=== PATIENT | male | born 1970 | race American Indian/Alaskan Native ===

== ENCOUNTER 2019-09-09 20:17 | Emergency (ER) | payer OTHER ==
[2019-09-09] MEDS ORDERED: ASPIRIN 325 MG TAB PO ONE (20:22)
--- NOTE | 2019-09-09 21:24 | Event Note ---
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 Further treatment and workup at subsequent clinical providers discretion. Patient/guardian urged not to elope from the ED as their condition may be serious if not clinically assessed and managed. Initial orders include: labs cxr
[2019-09-09 21:27] LABS: Basophils % (Auto) 0.5 % (0.0-1.8); Eosinophils # (Auto) 0.1 K/mm3 (0.0-0.4); Eosinophils % (Auto) 0.9 % (0.0-4.3); Hematocrit 46.4 % (35.5-45.6); Hemoglobin 15.5 gm/dl (11.8-15.2); Lymphocytes # (Auto) 1.8 K/mm3 (1.2-5.4); Lymphocytes % (Auto) 30.7 % (13.4-35.0); Mean Corpuscular HGB Conc 33 % (32-34); Mean Corpuscular Volume 90 fl (84-94); Monocytes # (Auto) 0.7 K/mm3 (0.0-0.8); Monocytes % (Auto) 11.9 % (0.0-7.3); Platelet Count 196 K/mm3 (140-440); Red Blood Count 5.18 M/mm3 (3.65-5.03); Red Cell Distribution Width 13.7 % (13.2-15.2)
[2019-09-09 21:45] LABS: BUN/Creatinine Ratio 15; Blood Urea Nitrogen 17 mg/dL (9-20); Calcium 9.9 mg/dL (8.4-10.2); Hemolysis Index 21
--- NOTE | 2019-09-09 22:42 | XRay Report ---
CHEST 1 VIEW INDICATION / CLINICAL INFORMATION: MAIN: Chest Pain; Pt c/o sub-sternal chest pain since Sunday.. COMPARISON: None available. FINDINGS: SUPPORT DEVICES: None. HEART / MEDIASTINUM: No significant abnormality. LUNGS / PLEURA: No significant pulmonary or pleural abnormality. No pneumothorax. ADDITIONAL FINDINGS: No significant additional findings. IMPRESSION: 1. No acute findings. Signer Name: Jossie Alvarez MD Signed: 09/09/2019 10:37 PM Workstation Name: [id number]
--- NOTE | 2019-09-10 00:27 | Emergency Department Report ---
ED Chest Pain HPI - General Chief Complaint: Chest Pain Stated Complaint: CHEST PAIN Time Seen by Provider: 09/10/19 00:23 Source: patient Mode of arrival: Ambulatory Limitations: No Limitations - History of Present Illness Initial Comments: Mr. Gonzales is a 49-year-old male without significant past medical history who presents with chest pain cough hemoptysis. Pain began 4 days ago. Feels a soreness in his chest. Worse with exertion at work. He has sputum with mild hemoptysis. No history of tobacco abuse. PCP Dr. Raymond Calvo MD Complaint: chest pain -: Gradual, days(s) (4) Onset: during rest, during exertion Pain Location: substernal Pain Radiation: none Severity: mild Quality: other ("Soreness") Worsens With: movement - Related Data Previous Rx's Medication Instructions Recorded Last Taken Type DOXYCYCLINE Hyclate [Vibramycin 100 mg PO Q12HR 7 Days #14 capsule 09/10/19 Unknown Rx CAP] Allergies Allergy/AdvReac Type Severity Reaction Status Date / Time No Known Allergies Allergy Unverified 09/09/19 20:20 Heart Score - HEART Score History: Slightly suspicious EKG: Normal Age: 45-65 Risk factors: No known risk factors Troponin: < normal limit HEART Score: 1 ED Review of Systems ROS: Stated complaint: CHEST PAIN Other details as noted in HPI Comment: All other systems reviewed and negative Constitutional: denies: fever, malaise Respiratory: cough Cardiovascular: chest pain ED Past Medical Hx - Past Medical History Previous Medical History?: No - Surgical History Past Surgical History?: No - Social History Smoking Status: Never Smoker - Medications Home Medications: Home Medications Medication Instructions Recorded Confirmed Last Taken Type DOXYCYCLINE Hyclate [Vibramycin 100 mg PO Q12HR 7 Days #14 capsule 09/10/19 Unknown Rx CAP] ED Physical Exam - General Limitations: No Limitations General appearance: alert, in no apparent distress - Head Head exam: Present: atraumatic, normocephalic - Eye Eye exam: Present: normal appearance - ENT ENT exam: Present: mucous membranes moist - Neck Neck exam: Present: normal inspection, full ROM - Respiratory Respiratory exam: Present: normal lung sounds bilaterally. Absent: respiratory distress, wheezes, rales, rhonchi - Cardiovascular Cardiovascular Exam: Present: regular rate, normal rhythm, normal heart sounds. Absent: systolic murmur, diastolic murmur, rubs, gallop - GI/Abdominal GI/Abdominal exam: Present: soft, normal bowel sounds. Absent: distended, tenderness, guarding, rebound - Rectal Rectal exam: Present: deferred - Extremities Exam Extremities exam: Present: normal inspection - Neurological Exam Neurological exam: Present: alert, oriented X3 - Psychiatric Psychiatric exam: Present: normal affect, normal mood - Skin Skin exam: Present: warm, dry, intact, normal color. Absent: rash ED Course Vital Signs 09/09/19 21:23 Temperature 97.8 F Pulse Rate 81 Respiratory 18 Rate Blood Pressure 127/87 O2 Sat by Pulse 98 Oximetry ED Medical Decision Making - Lab Data Result diagrams: 09/09/19 21:11 09/09/19 21:11 Laboratory Results - last 24 hr 09/09/19 09/09/19 21:11 21:11 WBC 5.9 RBC 5.18 H Hgb 15.5 H Hct 46.4 H MCV 90 MCH 30 MCHC 33 RDW 13.7 Plt Count 196 Lymph % (Auto) 30.7 [place] % (Auto) 11.9 H Eos % (Auto) 0.9 Baso % (Auto) 0.5 Lymph # 1.8 [place] # 0.7 Eos # 0.1 Baso # 0.0 Seg Neutrophils % 56.0 Seg Neutrophils # 3.3 Sodium 138 Potassium 4.0 Chloride 98.9 Carbon Dioxide 26 Anion Gap 17 BUN 17 Creatinine 1.1 Estimated GFR > 60 BUN/Creatinine Ratio 15 Glucose 95 Calcium 9.9 Troponin T < 0.010 - EKG Data EKG shows normal: sinus rhythm, axis, intervals, QRS complexes, ST-T waves Rate: normal - EKG Data Interpretation: normal EKG - Radiology Data Radiology results: report reviewed Chest radiograph: No acute findings - Medical Decision Making Mr. Gonzales presents with musculoskeletal chest pain acute bronchitis. Due to severity of symptoms antibiotics provided. Prescription for doxycycline. Atypical for ACS. No cardiovascular risk factors. I urged him to follow-up with his PCP Dr. Raymond Calvo Critical care attestation.: If time is entered above; I have spent that time in minutes in the direct care of this critically ill patient, excluding procedure time. ED Disposition Clinical Impression: Acute bronchitis, Chest wall pain Disposition: - TO HOME OR SELFCARE Is pt being admited?: No Does the pt Need Aspirin: No Condition: Stable Instructions: Acute Bronchitis (ED), Chest Pain (ED) Prescriptions: DOXYCYCLINE Hyclate [Vibramycin CAP] 100 mg PO Q12HR 7 Days #14 capsule Referrals: RAYMOND CALVO MD [Primary Care Provider] - 3-5 Days Forms: Work/School Release Form(ED)
[2019-09-10 00:52] VITALS: BP 126/91
== END 2019-09-10 00:45 | disposition home or self-care (01) ==
LOC: ED 20:17
DX: J20.9 Acute bronchitis, unspecified (principal); R07.89 Other chest pain; Z79.899 Other long term (current) drug therapy
CPT/HCPCS: 36415; 71045; 80048; 84484; 85025; 93005; 93010

== ENCOUNTER 2019-09-24 07:52 | Emergency (ER) | payer OTHER ==
[2019-09-24 08:04] VITALS: BP 139/86
[2019-09-24 08:37] LABS: Basophils % (Auto) 0.6 % (0.0-1.8); Eosinophils % (Auto) 0.1 % (0.0-4.3); Hematocrit 47.1 % (35.5-45.6); Hemoglobin 15.8 gm/dl (11.8-15.2); Lymphocytes # (Auto) 0.9 K/mm3 (1.2-5.4); Lymphocytes % (Auto) 24.1 % (13.4-35.0); Mean Corpuscular HGB Conc 34 % (32-34); Mean Corpuscular Volume 90 fl (84-94); Monocytes # (Auto) 0.3 K/mm3 (0.0-0.8); Monocytes % (Auto) 8.2 % (0.0-7.3); Platelet Count 177 K/mm3 (140-440); Red Blood Count 5.25 M/mm3 (3.65-5.03); Red Cell Distribution Width 13.5 % (13.2-15.2)
[2019-09-24 08:58] LABS: BUN/Creatinine Ratio 11; Blood Urea Nitrogen 8 mg/dL (9-20); Calcium 9.5 mg/dL (8.4-10.2); Hemolysis Index 10
--- NOTE | 2019-09-24 09:29 | XRay Report ---
CHEST 1 VIEW 09/24/2019 8:20 AM INDICATION / CLINICAL INFORMATION: Chest Pain. COMPARISON: One view of the chest from 09/09/2019. FINDINGS: SUPPORT DEVICES: None. HEART / MEDIASTINUM: No significant abnormality. LUNGS / PLEURA: No significant pulmonary or pleural abnormality. No pneumothorax. ADDITIONAL FINDINGS: No significant additional findings. IMPRESSION: 1. No acute abnormality of the chest. Signer Name: Joe Gallegos MD Signed: 09/24/2019 9:25 AM Workstation Name: [email or web address]
[2019-09-24] MEDS ORDERED: ALUM-MAG HYDROXIDE-SIMETHICONE 200-200-20MG/5ML ORAL LIQD 30 ML PO ONE (09:32)
--- NOTE | 2019-09-24 09:43 | Emergency Department Report ---
ED General Adult HPI - General Chief complaint: Chest Pain Stated complaint: BURNING IN CHEST Time Seen by Provider: 09/24/19 09:21 Source: patient Mode of arrival: Ambulatory Limitations: No Limitations - History of Present Illness Initial comments: 49-year-old -[place] male presents the emergency room complaining of burning sensation in his throat and chest that is nonradiating x4 weeks. Patient was seen here on 09/10/2019 for bronchitis. Patient states the discomfort is worse after he eats. Patient states that he has a primary care doctor Dr. Kashif parker. Patient has taken nothing for his discomfort. Patient has no past medical history no surgical history no known drug allergies and does not take meds on a daily basis Onset/Timin -: week(s) Location: chest, abdomen (Epigastric) Radiation: non-radiation Severity scale (0 -10): 5 Quality: burning Consistency: intermittent Improves with: none Worsens with: eating Associated Symptoms: denies other symptoms Treatments Prior to Arrival: none - Related Data Previous Rx's Medication Instructions Recorded Last Taken Type DOXYCYCLINE Hyclate [Vibramycin 100 mg PO Q12HR 7 Days #14 capsule 09/10/19 Unknown Rx CAP] Famotidine [Pepcid] 20 mg PO BID 30 Days #60 tablet 09/24/19 Unknown Rx Allergies Allergy/AdvReac Type Severity Reaction Status Date / Time No Known Allergies Allergy Unverified 09/09/19 20:20 ED Review of Systems ROS: Stated complaint: BURNING IN CHEST Other details as noted in HPI Comment: All other systems reviewed and negative ED Past Medical Hx - Past Medical History Previous Medical History?: No - Surgical History Past Surgical History?: No - Social History Smoking Status: Never Smoker - Medications Home Medications: Home Medications Medication Instructions Recorded Confirmed Last Taken Type DOXYCYCLINE Hyclate [Vibramycin 100 mg PO Q12HR 7 Days #14 capsule 09/10/19 Unknown Rx CAP] Famotidine [Pepcid] 20 mg PO BID 30 Days #60 tablet 09/24/19 Unknown Rx ED Physical Exam - General Limitations: No Limitations General appearance: alert, in no apparent distress - Head Head exam: Present: atraumatic, normocephalic - Eye Eye exam: Present: normal appearance - ENT ENT exam: Present: mucous membranes moist - Expanded ENT Exam Expanded Throat exam: Negative: tonsillar erythema, tonsillomegaly, tonsillar exudate - Neck Neck exam: Present: normal inspection - Respiratory Respiratory exam: Present: normal lung sounds bilaterally. Absent: respiratory distress, chest wall tenderness - Cardiovascular Cardiovascular Exam: Present: regular rate, normal rhythm. Absent: systolic murmur, diastolic murmur, rubs, gallop - GI/Abdominal GI/Abdominal exam: Present: soft, normal bowel sounds. Absent: distended, tenderness, guarding, rebound - Rectal Rectal exam: Present: deferred - Extremities Exam Extremities exam: Present: normal inspection - Back Exam Back exam: Present: normal inspection - Neurological Exam Neurological exam: Present: alert, oriented X3, normal gait - Psychiatric Psychiatric exam: Present: normal affect, normal mood - Skin Skin exam: Present: warm, dry, intact, normal color. Absent: rash ED Course Vital Signs 09/24/19 08:01 Temperature 99.0 F Pulse Rate 112 H Respiratory 18 Rate Blood Pressure 139/86 O2 Sat by Pulse 99 Oximetry ED Medical Decision Making - Lab Data Result diagrams: 09/24/19 08:26 09/24/19 08:26 Laboratory Tests 09/24/19 09/24/19 08:26 08:26 WBC 3.8 L RBC 5.25 H Hgb 15.8 H Hct 47.1 H MCV 90 MCH 30 MCHC 34 RDW 13.5 Plt Count 177 Lymph % (Auto) 24.1 [place] % (Auto) 8.2 H Eos % (Auto) 0.1 Baso % (Auto) 0.6 Lymph # 0.9 L [place] # 0.3 Eos # 0.0 Baso # 0.0 Seg Neutrophils % 67.0 Seg Neutrophils # 2.5 Sodium 138 Potassium 3.8 Chloride 99.4 Carbon Dioxide 24 Anion Gap 18 BUN 8 L Creatinine 0.7 L Estimated GFR > 60 BUN/Creatinine Ratio 11 Glucose 147 H Calcium 9.5 Troponin T < 0.010 - Radiology Data Radiology results: report reviewed Findings [facility] [address] [place] [address] XRay Report Signed Patient: LUCRECIA WHITLOCK MR#: [id number] [birth year] : 1970 Acct:[id number] Age/Sex: 49 / M ADM Date: 09/24/19 Loc: ED Attending Dr: Ordering Physician: CRUZ HEDRICK Date of Service: 09/24/19 Procedure(s): XR chest 1V ap Accession Number(s): [id number] cc: CRUZ HEDRICK Fluoro Time In Minutes: CHEST 1 VIEW 09/24/2019 8:20 AM INDICATION / CLINICAL INFORMATION: Chest Pain. COMPARISON: One view of the chest from 09/09/2019. FINDINGS: SUPPORT DEVICES: None. HEART / MEDIASTINUM: No significant abnormality. LUNGS / PLEURA: No significant pulmonary or pleural abnormality. No pneumothorax. ADDITIONAL FINDINGS: No significant additional findings. IMPRESSION: 1. No acute abnormality of the chest. Signer Name: Joe Gallegos MD Signed: 09/24/2019 9:25 AM Workstation Name: [id number] Transcribed By: [place] Dictated By: Joe Gallegos MD Electronically Authenticated By: Joe Gallegos MD Signed Date/Time: 09/24/19924 DD/ 3 TD/TT: - Medical Decision Making 49-year-old -[place]anish male presents the emergency room complaining of burning sensation in his throat and chest that is nonradiating x4 weeks. Patient was seen here on 09/10/2019 for bronchitis. Patient states the discomfort is worse after he eats. Patient states that he has a primary care doctor Dr. Kashif parker. Patient has taken nothing for his discomfort. Patient has no past medical history no surgical history no known drug allergies and does not take meds on a daily basis. Chest x-ray and cardiac work-up is negative. Patient will be given Maalox 15 mL's now and will be discharged home on famotidine. Critical care attestation.: If time is entered above; I have spent that time in minutes in the direct care of this critically ill patient, excluding procedure time. ED Disposition Clinical Impression: Acid reflux Qualifiers: Esophagitis presence: without esophagitis Qualified Code(s): K21.9 - Gastro- esophageal reflux disease without esophagitis Disposition: TO HOME OR SELFCARE Is pt being admited?: No Does the pt Need Aspirin: No Condition: Stable Instructions: Gastroesophageal Reflux Disease (ED) Additional Instructions: Please take medication as prescribed. Do not eat and lay down as this makes your acid reflux worse. Please avoid spicy greasy foods as this can exacerbate your acid reflux. Is very important for you to follow-up with the people greeter I have listed 1 below. You need to follow-up with your primary care provider as this is best managed by them. Prescriptions: Famotidine [Pepcid] 20 mg PO BID 30 Days #60 tablet Referrals: KASHIF GRIJALVA MD [Primary Care Provider] - 3-5 Days [facility] [Provider Group] - 3-5 Days Forms: Work/School Release Form(ED)
== END 2019-09-24 09:56 | disposition home or self-care (01) ==
LOC: ED 07:52
DX: K21.9 Gastro-esophageal reflux disease without esophagitis (principal); Z79.899 Other long term (current) drug therapy
CPT/HCPCS: 36415; 71045; 80048; 84484; 85025; 93005; 93010

== ENCOUNTER 2020-10-23 13:25 | Emergency (ER) | payer OTHER ==
[2020-10-23 15:10] VITALS: BP 148/91
--- NOTE | 2020-10-23 15:54 | Emergency Department Report ---
ED General Adult HPI - General Chief complaint: Pain General Stated complaint: BODYACHES Source: patient Mode of arrival: Ambulatory Limitations: No Limitations - History of Present Illness Initial comments: 50-year-old male c/o burning sensation starting with his feet and radiating up legs to his abdomen and upper back. Symptoms has been off and on for 2 weeks. He denies fever cough, chest pain,sob, no nausea no vomiting, no abdominal pain. He states his symptoms keeping him up at night. He has appointment with PCP on Sunday -: week(s) (2) Quality: burning Improves with: none Worsens with: none Associated Symptoms: denies other symptoms. denies: confusion, chest pain, cough, diaphoresis, fever/chills, headaches, loss of appetite, malaise, naus ea/vomiting, rash, seizure, shortness of breath, syncope, weakness Treatments Prior to Arrival: none - Related Data Previous Rx's Medication Instructions Recorded Last Taken Type DOXYCYCLINE Hyclate [Vibramycin 100 mg PO Q12HR 7 Days #14 capsule 09/10/19 Unknown Rx CAP] Famotidine [Pepcid] 20 mg PO BID 30 Days #60 tablet 09/24/19 Unknown Rx Butalb/Acetaminophen/Caffeine 1 cap PO Q6HR PRN #20 cap 01/27/20 Unknown Rx [Fioricet 50-300-40 mg CAP] Hydroxyzine HCl [hydrOXYzine] 50 mg PO Q6HR PRN #21 tablet 10/23/20 Unknown Rx Allergies Allergy/AdvReac Type Severity Reaction Status Date / Time No Known Allergies Allergy Verified 01/26/20 21:19 ED Review of Systems ROS: Stated complaint: BODYACHES Other details as noted in HPI Comment: All other systems reviewed and negative Constitutional: no symptoms reported Eyes: denies: eye pain, eye discharge ENT: denies: ear pain, throat pain, dental pain Respiratory: denies: cough, shortness of breath, SOB with exertion Cardiovascular: denies: chest pain, palpitations, dyspnea on exertion, edema, syncope, paroxysmal nocturnal dyspnea Endocrine: denies: excessive sweating, intolerance to cold, increased hunger, increased urine, unexplained weight gain, unexplained weight loss Gastrointestinal: denies: abdominal pain, nausea, vomiting, constipation Musculoskeletal: back pain (Burning sensation in his mid back), other (Burning sensation starts from his foot up his legs to his stomach and stays in the mid upper back) Skin: denies: rash, lesions, pruritus Neurological: denies: headache, weakness, paresthesias, confusion Psychiatric: denies: anxiety, depression, auditory hallucinations, visual hallucinations, homicidal thoughts Hematological/Lymphatic: denies: easy bleeding ED Past Medical Hx - Past Medical History Previous Medical History?: No Additional medical history: cyst on liver - Surgical History Past Surgical History?: No - Social History Smoking Status: Never Smoker Substance Use Type: None - Medications Home Medications: Home Medications Medication Instructions Recorded Confirmed Last Taken Type DOXYCYCLINE Hyclate [Vibramycin 100 mg PO Q12HR 7 Days #14 capsule 09/10/19 Unknown Rx CAP] Famotidine [Pepcid] 20 mg PO BID 30 Days #60 tablet 09/24/19 Unknown Rx Butalb/Acetaminophen/Caffeine 1 cap PO Q6HR PRN #20 cap 01/27/20 Unknown Rx [Fioricet 50-300-40 mg CAP] Hydroxyzine HCl [hydrOXYzine] 50 mg PO Q6HR PRN #21 tablet 10/23/20 Unknown Rx ED Physical Exam - General Limitations: No Limitations General appearance: alert, in no apparent distress - Head Head exam: Present: atraumatic - Eye Eye exam: Present: normal appearance - ENT ENT exam: Present: normal exam - Neck Neck exam: Present: normal inspection - Respiratory Respiratory exam: Present: normal lung sounds bilaterally - Cardiovascular Cardiovascular Exam: Present: regular rate, normal rhythm - Extremities Exam Extremities exam: Present: normal inspection - Back Exam Back exam: Present: normal inspection - Neurological Exam Neurological exam: Present: alert, oriented X3 - Psychiatric Psychiatric exam: Present: normal affect - Skin Skin exam: Present: warm, dry, intact, normal color ED Course Vital Signs 10/23/20 15:05 Temperature 98.5 F Pulse Rate 84 Respiratory 18 Rate Blood Pressure 148/91 O2 Sat by Pulse 99 Oximetry ED Medical Decision Making - Lab Data Result diagrams: 10/23/20 16:08 10/23/20 16:08 Lab Results 10/23/20 10/23/20 Range/Units 16:08 16:08 WBC 6.1 (4.5-11.0) K/mm3 RBC 5.48 H (3.65-5.03) M/mm3 Hgb 16.8 H (11.8-15.2) gm/dl Hct 50.1 H (35.5-45.6) % MCV 91 (84-94) fl MCH 31 (28-32) pg MCHC 34 (32-34) % RDW 13.8 (13.2-15.2) % Plt Count 179 (140-440) K/mm3 Lymph % (Auto) 32.5 (13.4-35.0) % [place] % (Auto) 9.1 H (0.0-7.3) % Eos % (Auto) 0.9 (0.0-4.3) % Baso % (Auto) 0.6 (0.0-1.8) % Lymph # (Auto) 2.0 (1.2-5.4) K/mm3 [place] # (Auto) 0.6 (0.0-0.8) K/mm3 Eos # (Auto) 0.1 (0.0-0.4) K/mm3 Baso # (Auto) 0.0 (0.0-0.1) K/mm3 Seg Neutrophils % 56.9 (40.0-70.0) % Seg Neutrophils # 3.5 (1.8-7.7) K/mm3 Sodium 138 (137-145) mmol/L Potassium 4.2 (3.6-5.0) mmol/L Chloride 98.8 (98-107) mmol/L Carbon Dioxide 28 (22-30) mmol/L Anion Gap 15 mmol/L BUN 11 (9-20) mg/dL Creatinine 0.7 L (0.8-1.3) mg/dL Estimated GFR > 60 ml/min BUN/Creatinine Ratio 16 % Glucose 75 (75-100) mg/dL Calcium 9.9 (8.4-10.2) mg/dL Total Bilirubin 0.40 (0.1-1.2) mg/dL AST 29 (5-40) units/L ALT 38 (7-56) units/L Alkaline Phosphatase 84 (35-129) units/L Total Protein 7.9 (6.3-8.2) g/dL Albumin 5.1 H (3.9-5) g/dL Albumin/Globulin Ratio 1.8 % - Radiology Data Radiology results: report reviewed chest xray FINDINGS: SUPPORT DEVICES: None. HEART / MEDIASTINUM: No significant abnormality. LUNGS / PLEURA: Lungs are clear. Costophrenic sulci are sharp. No pneumothorax. ADDITIONAL FINDINGS: No significant additional findings. IMPRESSION: 1. No acute findings. Critical Care Time: No Critical care attestation.: If time is entered above; I have spent that time in minutes in the direct care of this critically ill patient, excluding procedure time. ED Disposition Clinical Impression: Paresthesia of bilateral legs Is pt being admited?: No Does the pt Need Aspirin: No Condition: Stable Instructions: Paresthesia Additional Instructions: Follow-up with your physician on Sunday as scheduled. Today your lab work had no acute findings. Rest keep yourself well-hydrated you have been prescribed hydroxyzine please take as directed. Return to the emergency room if you develop any worsening symptoms such as chest pain shortness of breath fever chills vomiting diarrhea. Prescriptions: Hydroxyzine HCl [hydrOXYzine] 50 mg PO Q6HR PRN #21 tablet PRN Reason: Pain, Moderate (4-6) Referrals: PRIMARY CARE, [Primary Care Provider] - 3-5 Days Time of Disposition: 17:09
--- NOTE | 2020-10-23 16:27 | XRay Report ---
XR chest routine 2V INDICATION / CLINICAL INFORMATION: burning in mid upper back COMPARISON: 09/24/2019 FINDINGS: SUPPORT DEVICES: None. HEART / MEDIASTINUM: No significant abnormality. LUNGS / PLEURA: Lungs are clear. Costophrenic sulci are sharp. No pneumothorax. ADDITIONAL FINDINGS: No significant additional findings. IMPRESSION: 1. No acute findings. Signer Name: Sherwin Coates MD Signed: 10/23/2020 4:23 PM Workstation Name: [id number]
[2020-10-23 16:40] LABS: Basophils % (Auto) 0.6 % (0.0-1.8); Eosinophils # (Auto) 0.1 K/mm3 (0.0-0.4); Eosinophils % (Auto) 0.9 % (0.0-4.3); Hematocrit 50.1 % (35.5-45.6); Hemoglobin 16.8 gm/dl (11.8-15.2); Lymphocytes % (Auto) 32.5 % (13.4-35.0); Mean Corpuscular HGB Conc 34 % (32-34); Mean Corpuscular Volume 91 fl (84-94); Monocytes # (Auto) 0.6 K/mm3 (0.0-0.8); Monocytes % (Auto) 9.1 % (0.0-7.3); Platelet Count 179 K/mm3 (140-440); Red Blood Count 5.48 M/mm3 (3.65-5.03); Red Cell Distribution Width 13.8 % (13.2-15.2)
[2020-10-23 16:48] LABS: Alanine Aminotransferase 38 units/L (7-56); Albumin 5.1 g/dL (3.9-5); Blood Urea Nitrogen 11 mg/dL (9-20); Calcium 9.9 mg/dL (8.4-10.2); Hemolysis Index 16
[2020-10-23 16:51] LABS: BUN/Creatinine Ratio 16
== END 2020-10-23 17:13 | disposition home or self-care (01) ==
LOC: ED 13:25
DX: R20.2 Paresthesia of skin (principal); Z79.899 Other long term (current) drug therapy
CPT/HCPCS: 36415; 71046; 80053; 85025